=== PATIENT | male | born 2000 | race Caucasian/White ===

== ENCOUNTER 2020-12-11 10:46 | Outpatient (CLI) | payer BC, SELFPAY ==
[2020-12-11 11:26] LABS: SARS-CoV-2 Ag Negative (Negative)
== END 2020-12-11 10:47 | disposition home or self-care (01) ==
PROVIDERS: PCP Internal Medicine; Visit Provider Nurse Practitioner Family
DX: J06.9 Acute upper respiratory infection, unspecified (principal); Z20.822 Contact with and (suspected) exposure to COVID-19
CPT/HCPCS: 87426; C9803